=== PATIENT | female | born 1995 ===

== ENCOUNTER 2017-12-01 09:36 | Emergency (ER) | payer MEDICAID, OTHER ==
[2017-12-01 09:40] VITALS: RESP 16
[2017-12-01 09:41] VITALS: BMI 30.1
[2017-12-01] MEDS ORDERED: Sodium Chloride 0.9% 1,000 ML IV STA (09:49)
--- NOTE | 2017-12-01 09:51 | ED PDOC ---
HPI:Nausea, Vomiting, Diarrhea Time Seen by Provider: 12/01/17 09:40 History Per: Patient Onset/Duration Of Symptoms: Days (1) Severity: Mild Pain Scale Rating Of: 0 Exacerbating Factors: None Alleviating Factors: None Additional Complaint(s): Nausea and vomiting since last night. Admits to consumption of ETOH. Denies abd pain, diarrhea or fever. Denies blood in vomitus Past Medical History Vital Signs: Last Vital Signs Temp 98.5 F 12/01/17 09:39 Pulse 84 12/01/17 09:39 Resp 16 12/01/17 09:39 BP 105/72 12/01/17 09:39 Pulse Ox 96 12/01/17 09:39 - Medical History PMH: No Chronic Diseases - Family History Family History: States: Unknown Family Hx - Home Medications Home Medications: Ambulatory Orders Medication Instructions Recorded Albuterol HFA [Ventolin HFA 90 1 puff IH ASDIR #1 unit 02/10/15 mcg/actuation (8 g)] Azithromycin [Zithromax Z-Junior] 250 mg PO DAILY #1 packet 02/10/15 Benzonatate [Tessalon Perles] 200 mg PO Q8H PRN #30 tab 02/10/15 Prednisone 50 mg PO DAILY #6 tab 02/10/15 Ondansetron [Zofran] 4 mg PO Q8H #10 tab 12/01/17 - Allergies Allergies/Adverse Reactions: Allergies Allergy/AdvReac Type Severity Reaction Status Date / Time No Known Allergies Allergy Verified 02/10/15 20:14 Review of Systems ROS Statement: Except As Marked, All Systems Reviewed And Found Negative Gastrointestinal: Positive for: Nausea, Vomiting Physical Exam - Reviewed Nursing Documentation Reviewed: Yes Vital Signs Reviewed: Yes - Physical Exam Appears: Positive for: Non-toxic, No Acute Distress Head Exam: Positive for: ATRAUMATIC, NORMAL INSPECTION, NORMOCEPHALIC Skin: Positive for: Normal Color, Warm, DRY Eye Exam: Positive for: EOMI, Normal appearance, PERRL ENT: Positive for: Normal ENT Inspection Neck: Positive for: Normal, Painless ROM Cardiovascular/Chest: Positive for: Regular Rate, Rhythm Respiratory: Positive for: CNT, Normal Breath Sounds Gastrointestinal/Abdominal: Positive for: Soft. Negative for: Tenderness Back: Positive for: Normal Inspection Extremity: Positive for: Normal ROM Neurologic/Psych: Positive for: Alert, Oriented - Laboratory Results Result Diagrams: 12/01/17 10:00 12/01/17 10:00 - ECG O2 Sat by Pulse Oximetry: 96 - Progress Re-evaluation Time: 11:10 Condition: Improved Disposition - Clinical Impression Clinical Impression: Gastritis - Patient ED Disposition Is Patient to be Admitted: No Counseled Patient/Family Regarding: Studies Performed, Diagnosis, Need For Followup, Rx Given - Disposition Referrals: FAMILY PROVIDER,NO [Primary Care Provider] - [facility] [place] [Outside] Disposition: Routine/Home Disposition Time: 11:10 Condition: FAIR Prescriptions: Ondansetron [Zofran] 4 mg PO Q8H #10 tab Instructions: Gastritis
[2017-12-01 10:18] LABS: BASO % 0.4 % (0.0-2.0); EOS # 0.2 K/uL (0.0-0.7); EOS % 2.7 % (0.0-4.0); HEMOGLOBIN 14.3 g/dL (12.0-16.0); LYMPH # 2.2 K/uL (1.0-4.3); LYMPH % 28.2 % (20.0-40.0); MEAN CELL VOLUME 79.6 fl (81.0-99.0); MEAN CORPUSCULAR HEMOGLOBIN 27.8 pg (27.0-31.0); MEAN CORPUSCULAR HGB CONC 34.9 g/dL (33.0-37.0); MEAN PLATELET VOLUME 8.1 fl (7.2-11.7); MONO # 0.5 K/uL (0.0-0.8); MONO % 6.6 % (0.0-10.0); NEUT # 4.9 K/uL (1.8-7.0); NEUT % 62.1 % (50.0-75.0); NRBC % 0.3 % (0.0-0.0); RBC 5.14 Mil/uL (3.80-5.20); RED CELL DISTRIBUTION WIDTH 14.4 % (11.5-14.5); WHITE BLOOD COUNT 7.9 K/uL (4.8-10.8)
[2017-12-01 10:26] LABS: ALB/GLOB RATIO 1.5 (1.0-2.1); ALBUMIN 4.9 g/dL (3.5-5.0); ALT/SGPT 22 U/L (9-52); AST/SGOT 27 U/L (14-36); BLOOD UREA NITROGEN 11 mg/dl (7-17); CALCIUM 9.6 mg/dL (8.4-10.2); GFR NON-AFRICAN AMERICAN > 60
[2017-12-01 11:19] VITALS: BP 100/64; PULSE 62; TEMP 97.7; O2SAT 99
== END 2017-12-01 11:24 | disposition home or self-care (01) ==
LOC: H.ER 09:36
DX: K29.70 Gastritis, unspecified, without bleeding (principal)
CPT/HCPCS: 80053; 80320; 81025; 85025; 96361; 96374; 96375; 99283; J2405; J7030